=== PATIENT | female | born 1985 | race Two or more races ===

== ENCOUNTER → 2018-02-28 | Outpatient (CLI) | payer OTHER ==
--- NOTE | 2018-02-28 10:45 | RAD ---
EXAM: Obstetrics sonogram. HISTORY: anatomy survey. TECHNIQUE: Sonographic imaging of a gravid uterus was performed. COMPARISON: None. FINDINGS: There is a single intrauterine fetus in transverse presentation with a heart rate of 144 bpm. The cervix is closed and measures 6.4 cm in length. There is body motion. There is a four-chamber heart. There is a three-vessel umbilical cord with normal insertion. The stomach, kidneys, bladder, spine and brain are unremarkable. The facial profile and extremities are unremarkable. There is an anterior placenta without evidence of placenta previa. The amniotic fluid index is normal. The maternal ovaries are unremarkable. The biparietal diameter is 4.2 cm, corresponding with 18 weeks and 4 days. The head circumference is 15.9 cm, corresponding with 18 weeks and 5 days. The abdominal circumference is 14.1 cm, corresponding with 19 weeks and 3 days. The femoral length is 2.9 cm, corresponding with 18 weeks and 6 days. The estimated gestational age patient combined ultrasound measurements is 18 weeks and 6 days. The estimated weight is 275 g. The estimated due date based on ultrasound measurements is 6018. IMPRESSION: Single intrauterine fetus with an estimated gestational age based on ultrasound measurements of 18 weeks and 6 days and heart rate of 144 bpm. Electronically signed by: Julianna Waterman MD (02/28/2018 10:41 AM) [facility]
== END | disposition home or self-care (01) ==
LOC: US 09:40
PROVIDERS: ATTEND Obstetrics & Gynecology
DX: O32.2XX0 Maternal care for transverse and oblique lie, not applicable or unspecified (principal); Z3A.18 18 weeks gestation of pregnancy
CPT/HCPCS: 76805

== ENCOUNTER → 2018-05-27 | Outpatient (CLI) | payer OTHER | END | disposition home or self-care (01) | LOC: LAB 09:05 | PROVIDERS: ATTEND Obstetrics & Gynecology | DX: O32.2XX0 Maternal care for transverse and oblique lie, not applicable or unspecified (principal); Z3A.32 32 weeks gestation of pregnancy | CPT/HCPCS: 36415; 82947; 82950 ==

== ENCOUNTER 2018-07-25 05:06 | Inpatient (IN) | payer OTHER ==
[~2018-07-25] VITALS: Ht 157.5 cm; Wt 80.7 kg
[2018-07-25] MEDS ORDERED: 0.9 % SODIUM CHLORIDE 10 ML DISP.SYRIN. IV PRN (05:15)
[2018-07-25] MEDS ORDERED: fentaNYL PF VIAL 100 MCG/2 ML VIAL IV PRN (05:15)
[2018-07-25] MEDS ORDERED: ONDANSETRON PF 4 MG/2 ML VIAL. IV PRN ×2 (05:15→11:15)
[2018-07-25] MEDS ORDERED: ACETAMINOPHEN 325 MG TABLET. PO PRN (05:15)
[2018-07-25] MEDS ORDERED: TERBUTALINE 1 MG/ML VIAL. SQ PRN (05:15)
[2018-07-25] MEDS ORDERED: OXYTOCIN 30 UNIT/500 ML PREMIX 500 ML IV PRN ×2 (05:15)
[2018-07-25] MEDS ORDERED: NALBUPHINE 10 MG/ML AMPUL. IV PRN (05:15)
[2018-07-25] MEDS ORDERED: IBUPROFEN 400 MG TABLET. PO PRN (05:15)
[2018-07-25] MEDS ORDERED: LIDOCAINE 1% PF 30 ML VIAL. INJ PRN (05:15)
[2018-07-25] MEDS: IV RINGERS,LACTATED 1000ML 1,000 ML IV PRN ×3 (05:49→19:26)
[2018-07-25 06:20] LABS: BASO % 0 % (0-3); EOS # 0.1 x10^3/uL (0.0-0.7); EOS % 1 % (0-3); HEMATOCRIT 31.8 % (36.0-47.0); HEMOGLOBIN 10.2 g/dL (12.0-15.5); LYMPH # 2.8 x10^3/uL (1.0-4.8); LYMPH % 30 % (24-48); MEAN CORPUSCULAR HEMOGLOBIN 26 pg (25-35); MEAN CORPUSCULAR HGB CONC 32 g/dL (31-37); MEAN CORPUSCULAR VOLUME 82 fL (79-100); MONO # 0.6 x10^3/uL (0.0-1.1); MONO % 7 % (0-9); NEUT # 5.7 x10^3uL (1.8-7.7); NEUT % 62 % (31-73); PLATELET COUNT 427 x10^3/uL (140-400); RED BLOOD COUNT 3.88 x10^6/uL (3.50-5.40); RED CELL DISTRIBUTION WIDTH 14.9 % (11.5-14.5); WHITE BLOOD COUNT 9.2 x10^3/uL (4.0-11.0)
[2018-07-25 06:22] VITALS: BP 113/59
[2018-07-25 07:20] LABS: BILIRUBIN,URINE NEGATIVE (NEG); CLARITY,URINE CLEAR; COLOR,URINE YELLOW; NITRITE,URINE NEGATIVE (NEG); PH,URINE 6.5; PROTEIN,URINE NEGATIVE (NEG-TRACE); UROBILINOGEN,URINE 0.2 mg/dL (0.2 mg/dL)
--- NOTE | 2018-07-25 07:36 | PDOC1 ---
OB - History Hx of Present Care: Good Care Ultrasounds: Normal mid trimester US Obstetrical Complications: None Medical Complications: None Past Family/Social History * Past Medical, Surgical, Family and Obstetric Histories reviewed from chart. Rubella: Immune RPR/VDRL: Negative GBS Status: Negative HBsAG: Negative OB - Chief Complaint & HPI Date of Admission: Date of Admission: Jul 25, 2018 at 05:06 Chief Complaint/History : 5 Para: 2 EGA: 40 Reason for admission: induction of labor Indication for induction: post dates Admission Nurse Assessment Rev: Yes OB - Admission Exam Physical Exam Vitals: VS - Last 72 Hours, by Label Date Time Temp Pulse Resp B/P (MAP) Pulse Ox O2 Delivery O2 Flow Rate FiO2 07/25/18 06:22 97.5 120 18 113/59 (77) 98 Room Air 97.5 HEENT: Normal Heart: Regular Rate Lungs: Clear Abdomen: Gravid, Non tender, Soft Extremities: Edema Reflexes: Normal Cervical Dilatation: 2cm Effacement: 75% Station: -3 Membranes: Intact Heart Rate: Normal Accelerations: Accelerations Present Decelerations: No decelerations Contractions on Admission: >10 Minutes Apart Intensity: Mild Text A: 40 wks IUP IOL secondary maternal discomforts and post dates. P: Admit for pitocin induction. MITRA KEARNS Jr, MD Jul 25, 2018 07:36
[2018-07-25 07:40] LABS: BACTERIA,URINE MODERATE /HPF (0-FEW); RBC,URINE 0 /HPF (0-2); SQUAMOUS EPITHELIAL CELL,UR MOD /LPF
[2018-07-25] MEDS ORDERED: IV RINGERS,LACTATED 1000ML 1,000 ML IV SCH (11:08)
[2018-07-25] MEDS ORDERED: fentaNYL PF VIAL 100 MCG/2 ML VIAL EPI PRN (11:15)
[2018-07-25] MEDS ORDERED: ROPIVacaine 0.2% IN 0.9%NACL PF 40 MG/20 ML DISP.SYRIN. EPID PRN (11:15)
[2018-07-25] MEDS ORDERED: ePHEDrine PF IN SALINE 50 MG/5 ML DISP.SYRIN IV PRN (11:15)
[2018-07-25] MEDS ORDERED: NALOXONE 0.4 MG/ML VIAL. IV PRN (11:15)
[2018-07-25] MEDS ORDERED: ROPIVacaine 0.2% IN 0.9%NACL PF 40 MG/20 ML DISP.SYRIN. ONE (12:00)
[2018-07-25] MEDS ORDERED: L&D EPIDURAL 50 ML SYRINGE. ONE (12:00)
[2018-07-25] MEDS ORDERED: LIDOCAINE 2% PF Vial for OR 5 ML VIAL. ONE (14:18)
[2018-07-25] MEDS: L&D EPIDURAL SYRINGE 50 ML EPID PRN ×3 (14:32→21:55)
--- NOTE | 2018-07-26 00:17 | PDOC ---
VAGINAL DELIVERY DATE DATE: 07/26/18 TIME: 00:14 : 5 Para: 3 EGA: 40 VAGINAL DELIVERY: VTX VACCUM ASSISTED: Yes NUMBER OF PULLS two NUMBER OF POP OFFS none MAXIMUM PRESSURE 600 mmgh PLACENTA: Spontaneous 7/9 SEX: Male WEIGHT Weight [ 7 lbs. 12 oz. ] Nuchal Cord: Yes, Times 1 Amniotic Fluid: Clear PAIN: Epidural EPISIOTOMY: No EXTENSION: Yes (2nd degree midline laceration) REPAIRED WITH 2-0 vicryl EBL 300 ml COMPLICATIONS none CONDITION pt. stable Signs of Intrauterine Infectio: None Shoulder Dystocia: No MITRA KEARNS Jr, MD Jul 26, 2018 00:17
[2018-07-26] MEDS ORDERED: ZOLPIDEM 5 MG TABLET. PO PRN (00:30)
[2018-07-26] MEDS ORDERED: HYDROCORTISONE 1% TOPICAL OINTMENT 30GM TUBE. TP PRN (00:30)
[2018-07-26] MEDS ORDERED: MAGNESIUM HYDROXIDE 2,400 MG/30 ML ORAL.SUSP. PO PRN (00:30)
[2018-07-26] MEDS ORDERED: OXYTOCIN 30 UNIT/500 ML PREMIX 500 ML IV PRN (00:30)
[2018-07-26] MEDS ORDERED: DOCUSATE SODIUM 100 MG CAPSULE. PO PRN (00:30)
[2018-07-26] MEDS ORDERED: 0.9 % SODIUM CHLORIDE 10 ML DISP.SYRIN. IV PRN (00:30)
[2018-07-26] MEDS ORDERED: ACETAMINOPHEN 325 MG TABLET. PO PRN (00:30)
[2018-07-26] MEDS ORDERED: SIMETHICONE 80 MG TAB.CHEW PO PRN (00:30)
[2018-07-26] MEDS ORDERED: MAG HYDROX/ALUMINUM HYD/SIMETH 30 ML ORAL.SUSP PO PRN (00:30)
[2018-07-26] MEDS ORDERED: oxyCODONE/APAP 5/325 1 TAB TABLET PO PRN (00:30)
[2018-07-26] MEDS ORDERED: diphenhydrAMINE HCL 25 MG CAPSULE PO PRN (00:30)
[2018-07-26] MEDS ORDERED: PHENYLEPH/MINERAL OIL/PETROLAT RECTAL OINTMENT 28GM TUBE. RC PRN (00:30)
[2018-07-26] MEDS ORDERED: MMR per PROTOCOL. MC PRN (00:30)
[2018-07-26] MEDS ORDERED: BENZOCAINE 20% TOPICAL AEROSOL SPRAY 57GM CAN. TP PRN (00:30)
[2018-07-26 02:35] VITALS: BP 117/67
[2018-07-26 03:40] VITALS: BP 110/62
[2018-07-26] MEDS: IBUPROFEN 400 MG TABLET. PO PRN ×2 (06:17→16:22)
[2018-07-26 06:18] VITALS: BP 106/57
[2018-07-26 11:27] VITALS: BP 104/61
--- NOTE | 2018-07-26 11:57 | PDOC ---
OB Progress Note Date of Service 07/26/18 Time of Evaluation 1150 Notes Pt. feeling well. No complaints. Lab Laboratory Tests Test 07/25/18 05:50 07/25/18 06:30 White Blood Count 9.2 x10^3/uL (4.0-11.0) Red Blood Count 3.88 x10^6/uL (3.50-5.40) Hemoglobin 10.2 g/dL (12.0-15.5) Hematocrit 31.8 % (36.0-47.0) Mean Corpuscular Volume 82 fL (79-100) Mean Corpuscular Hemoglobin 26 pg (25-35) Mean Corpuscular Hemoglobin Concent 32 g/dL (31-37) Red Cell Distribution Width 14.9 % (11.5-14.5) Platelet Count 427 x10^3/uL (140-400) Neutrophils (%) (Auto) 62 % (31-73) Lymphocytes (%) (Auto) 30 % (24-48) Monocytes (%) (Auto) 7 % (0-9) Eosinophils (%) (Auto) 1 % (0-3) Basophils (%) (Auto) 0 % (0-3) Neutrophils # (Auto) 5.7 x10^3uL (1.8-7.7) Lymphocytes # (Auto) 2.8 x10^3/uL (1.0-4.8) Monocytes # (Auto) 0.6 x10^3/uL (0.0-1.1) Eosinophils # (Auto) 0.1 x10^3/uL (0.0-0.7) Basophils # (Auto) 0.0 x10^3/uL (0.0-0.2) Treponema pallidum Antibody Nonreactive (Nonreactive) Urine Collection Type Unknown Urine Color Yellow Urine Clarity Clear Urine pH 6.5 Urine Specific [place] <=1.005 Urine Protein Negative mg/dL (NEG-TRACE) Urine Glucose (UA) Negative mg/dL (NEG) Urine Ketones (Stick) Negative mg/dL (NEG) Urine Blood Negative (NEG) Urine Nitrite Negative (NEG) Urine Bilirubin Negative (NEG) Urine Urobilinogen Dipstick 0.2 mg/dL (0.2 mg/dL) Urine Leukocyte Esterase Small (NEG) Urine RBC 0 /HPF (0-2) Urine WBC 1-4 /HPF (0-4) Urine Squamous Epithelial Cells Mod /LPF Urine Bacteria Moderate /HPF (0-FEW) Medications Current Medications Sodium Chloride (Normal Saline Flush) 3 ml QSHIFT PRN IV AFTER MEDS AND BLOOD DRAWS; Start 07/25/18 at 05:15; Stop 07/26/18 at 01:15; Status DC Ringer's Solution 1,000 ml @ 125 mls/hr Q8H PRN IV hydration Last administered on 07/25/18at 19:26; Start 07/25/18 at 05:15 Nalbuphine HCl (Nubain) 10 mg PRN Q1HR PRN IV Severe labor pain; Start at 05:15; Stop 07/26/18 at 01:15; Status DC Fentanyl Citrate (Fentanyl 2ml Vial) 100 mcg PRN Q30MIN PRN IV Severe pain; Start 07/25/18 at 05:15; Stop 07/26/18 at 01:15; Status DC Acetaminophen (Tylenol) 650 mg PRN Q6HRS PRN PO MILD PAIN / TEMP; Start at 05:15; Stop 07/26/18 at 01:16; Status DC Ondansetron HCl (Zofran) 8 mg PRN Q6HRS PRN IV NAUSEA/VOMITING Last administered on 07/25/18at 18:38; Start 07/25/18 at 05:15; Stop 07/26/18 at 01:16 ; Status DC Terbutaline Sulfate (Brethine) 0.25 mg 1X PRN PRN SQ SEE COMMENTS; Start at 05:15; Stop 07/26/18 at 01:16; Status DC Lidocaine HCl (Xylocaine 1% Pf 30ml Vial) 30 ml 1X PRN PRN INJ SEE COMMENTS; Start 07/25/18 at 05:15; Stop 07/26/18 at 01:16; Status DC Oxytocin/Sodium Chloride 500 ml @ 0 mls/hr CONT PRN IV SEE I/O RECORD Last administered on 07/25/18at 05:50; Start 07/25/18 at 05:15; Stop 07/26/18 at 01:16 ; Status DC Oxytocin/Sodium Chloride 500 ml @ 0 mls/hr CONT PRN PRN IV Post delivery bleeding; Start 07/25/18 at 05:15; Stop 07/26/18 at 00:28; Status DC Ibuprofen (Motrin) 800 mg PRN Q6HRS PRN PO PAIN/INFLAMMATION POST DELIVER; Start 07/25/18 at 05:15; Stop 07/26/18 at 00:27; Status DC Ringer's Solution 1,000 ml @ 1,000 mls/hr Q1H IV Last administered on at 14:31; Start 07/25/18 at 11:08; Stop 07/25/18 at 12:07; Status DC Ephedrine Sulfate (ePHEDrine PF IN SALINE SYRINGE) 10 mg PRN Q2MIN PRN IV IF SBP<90; Start 07/25/18 at 11:15; Stop 07/26/18 at 01:16; Status DC Naloxone HCl (Narcan) 0.4 mg PRN Q1MIN PRN IV SEE COMMENTS; Start 07/25/18 at 11:15; Stop 07/26/18 at 01:16; Status DC Fentanyl Citrate (Fentanyl 2ml Vial) 100 mcg PRN 1X PRN EPI FOR ANESTHESIA; Start 07/25/18 at 11:15; Stop 07/26/18 at 01:16; Status DC Ropivacaine/ Fentanyl/NS 50 ml @ 14 mls/hr CONT PRN EPID PAIN Last administered on 07/25/18at 21:55; Start 07/25/18 at 11:15; Stop 07/26/18 at 01:16 ; Status DC Ondansetron HCl (Zofran) 4 mg PRN Q6HRS PRN IV NAUSEA/VOMITING; Start 07/25/18 at 11:15; Stop 07/26/18 at 01:16; Status DC Ropivacaine/ Sodium Chloride (ROPIVacaine 0.2% - 0.9%NACL PF) 40 mg PRN 1X PRN EPID SEE COMMENTS; Start 07/25/18 at 11:15; Stop 07/26/18 at 01:16; Status DC Lidocaine HCl (Lidocaine Pf 2% Vial) 5 ml STK-MED ONCE .ROUTE ; Start 07/25/18 at 14:18; Stop 07/26/18 at 01:16; Status DC Sodium Chloride (Normal Saline Flush) 10 ml QSHIFT PRN IV AFTER MEDS AND BLOOD DRAWS; Start 07/26/18 at 00:30 Oxytocin/Sodium Chloride 500 ml @ 62.5 mls/hr CONT PRN IV SEE I/O RECORD; Start 07/26/18 at 00:30; Stop 07/26/18 at 08:29; Status DC Acetaminophen (Tylenol) 650 mg PRN Q6HRS PRN PO MILD PAIN / TEMP; Start at 00:30 Ibuprofen (Motrin) 800 mg PRN Q8HRS PRN PO INFLAMMATION/PAIN PREVENTION Last administered on 07/26/18at 06:17; Start 07/26/18 at 00:30 Docusate Sodium (Colace) 100 mg PRN BID PRN PO CONSTIPATION; Start 07/26/18 at 00:30 Magnesium Hydroxide (Milk Of Magnesia) 2,400 mg PRN DAILY PRN PO CONSTIPATION; Start 07/26/18 at 00:30 Al Hydroxide/Mg Hydroxide (Mylanta Plus Xs) 30 ml PRN Q4HRS PRN PO HEARTBURN / GAS; Start 07/26/18 at 00:30 Simethicone (Gas-X) 80 mg PRN AFTMEALHC PRN PO GAS / BLOATING; Start 07/26/18 at 00:30 Diphenhydramine HCl (Benadryl) 25 mg PRN Q6HRS PRN PO ITCHING; Start 07/26/18 at 00:30 Benzocaine (Americaine) 1 spray PRN QID PRN TP TOPICAL PAIN; Start 07/26/18 at 00:30 Phenyleph/Shark Oil/Min Oil/Petrol (Preparation H) 1 margarita PRN QID PRN RC RECTAL PAIN; Start 07/26/18 at 00:30 Hydrocortisone (Cortaid) 1 margarita PRN QID PRN TP PERINEAL PAIN; Start 07/26/18 at 00:30 Ferrous Sulfate (Feosol) 325 mg BIDWMEALS PO ; Start 07/27/18 at 08:00 Zolpidem Tartrate (Ambien) 5 mg PRN QHS PRN PO INSOMNIA, MAY REPEAT X1; Start 07/26/18 at 00:30 Info (Do NOT chart on this placeholder) 1 ea 1X PRN PRN MC SEE COMMENTS; Start 07/26/18 at 00:30 Info (Do NOT chart on this placeholder) 1 ea 1X PRN PRN MC SEE COMMENTS; Start 07/26/18 at 00:30 Oxycodone/ Acetaminophen (Percocet 5/325) 2 tab PRN Q4HRS PRN PO MODERATE PAIN , SEVERE PAIN Last administered on 07/26/18at 09:15; Start 07/26/18 at 00:30 Exam Abd: soft, non tender, fundus firm Assessment PPD#1 s/p Plan of Care: Continue current Tx, Mgmt MITRA KEARNS Jr, MD Jul 26, 2018 11:57
[2018-07-26 16:24] VITALS: BP 111/53
[2018-07-26 20:00] VITALS: BP 104/61
[2018-07-27] MEDS: IBUPROFEN 400 MG TABLET. PO PRN ×2 (05:03→13:19)
[2018-07-27 05:09] VITALS: BP 96/53
[2018-07-27 05:52] LABS: BASO % 0 % (0-3); EOS # 0.2 x10^3/uL (0.0-0.7); EOS % 1 % (0-3); HEMATOCRIT 29.7 % (36.0-47.0); HEMOGLOBIN 9.6 g/dL (12.0-15.5); LYMPH # 3.5 x10^3/uL (1.0-4.8); LYMPH % 20 % (24-48); MEAN CORPUSCULAR HEMOGLOBIN 27 pg (25-35); MEAN CORPUSCULAR HGB CONC 32 g/dL (31-37); MEAN CORPUSCULAR VOLUME 83 fL (79-100); MONO # 1.2 x10^3/uL (0.0-1.1); MONO % 7 % (0-9); NEUT # 12.8 x10^3uL (1.8-7.7); NEUT % 72 % (31-73); PLATELET COUNT 368 x10^3/uL (140-400); RED BLOOD COUNT 3.57 x10^6/uL (3.50-5.40); RED CELL DISTRIBUTION WIDTH 15.3 % (11.5-14.5); WHITE BLOOD COUNT 17.8 x10^3/uL (4.0-11.0)
[2018-07-27] MEDS ORDERED: FERROUS SULFATE 325 MG TABLET. PO SCH (08:00)
[2018-07-27 09:00] VITALS: BP 133/78
[2018-07-27 09:54] LABS: % BANDS 3 % (0-9); % EOS 3 % (0-5); % LYMPHS 17 % (24-48); % MONOS 4 % (0-10); % SEGS 73 % (35-66); PLT ESTIMATE ADEQUATE (ADEQUATE)
[2018-07-27] MEDS ORDERED: DIPHTH,PERTUSS(ACELL),TET TOX 0.5 ML DISP.SYRIN. VAX IM ONE (11:00)
--- NOTE | 2018-07-27 12:45 | PDOC3 ---
OB DISCHARGE SUMMARY DATE OF ADMISSION: 07/25/18 DATE OF DISCHARGE: 07/27/18 REASON FOR ADMISSION: Induction of labor INTRAPARTUM PROCEDURES: Spontanous Vag Deliv DISCHARGE DIAGNOSIS: Term Delivered DISCHARGE INFORMATION: Activity (ad kali), Diet (regular), Instructions (pelvic rest x 6 wks) HOSPITAL COURSE Term gestation delivered vaginally without complications. MITRA KEARNS Jr, MD Jul 27, 2018 12:45
--- NOTE | 2018-07-27 12:46 | DISCH ---
DISCHARGE INSTRUCTIONS Condition on Discharge Condition on Discharge: Stable Activity After Discharge Activity Instructions for Disc: Activity as tolerated Lifting Instructions after Dis: No heavy lifting Driving Instructions after Dis: Do not drive today Diet after Discharge Diet after Discharge: Regular Contacting the DRE[facility]iel after DC Call your doctor for: Concerns you may have Follow-Up Follow up with: Dr. Ellsworth in 6 wks MITRA ELLSWORTH Jr, MD Jul 27, 2018 12:46
[2018-07-27] MEDS ORDERED: IBUP-1027 PO (12:49)
[2018-07-27 14:00] VITALS: BP 132/67
== END 2018-07-27 14:30 | disposition home or self-care (01) | DRG 807 ==
LOC: 3 SO LND 05:06
PROVIDERS: ADMIT Obstetrics & Gynecology; ATTEND Obstetrics & Gynecology
PROC: 10D07Z6 Extraction of Products of Conception, Vacuum, Via Natural or Artificial Opening (ICD-10-PCS; principal; 2018-07-25)
PROC: 0KQM0ZZ Repair Perineum Muscle, Open Approach (ICD-10-PCS; 2018-07-25)
PROC: 3E0R3BZ Introduction of Anesthetic Agent into Spinal Canal, Percutaneous Approach (ICD-10-PCS; 2018-07-25)
PROC: 00HU33Z Insertion of Infusion Device into Spinal Canal, Percutaneous Approach (ICD-10-PCS; 2018-07-25)
PROC: 10907ZC Drainage of Amniotic Fluid, Therapeutic from Products of Conception, Via Natural or Artificial Opening (ICD-10-PCS; 2018-07-25)
PROC: 3E033VJ Introduction of Other Hormone into Peripheral Vein, Percutaneous Approach (ICD-10-PCS; 2018-07-25)
DX: O48.0 Post-term pregnancy (principal); Z37.0 Single live birth; Z3A.40 40 weeks gestation of pregnancy; O70.1 Second degree perineal laceration during delivery; O69.1XX0 Labor and delivery complicated by cord around neck, with compression, not applicable or unspecified
CPT/HCPCS: 36415; 81001; 85007; 85025; 86592; 86850; 86900; 86901; 87086; 90471; 90715; J2001; J2405; J2590; J2795; J7120